=== PATIENT | female | born 1980 | race Caucasian/White ===

== ENCOUNTER 2017-06-09 10:48 | Outpatient (CLI) | payer OTHER ==
[2017-06-09 11:38] LABS: BILIRUBIN,URINE NEGATIVE (NEGATIVE)
[2017-06-09 11:51] LABS: WBC,URINE 0-3 /HPF (0-5)
[2017-06-09 11:59] LABS: BASOPHILS % (AUTO) 0.6 %; EOSINOPHILS % (AUTO) 0.7 %; HCT - HEMATOCRIT 39.4 % (37.0-47.0); HGB - HEMOGLOBIN 13.4 g/dL (12.0-16.0); LYMPHOCYTES % (AUTO) 16.1 %; MEAN CORPUSCULAR HEMOGLOBIN 28.2 pg (27.0-31.0); MEAN CORPUSCULAR HGB CONC 34.1 g/dL (32.0-36.0); MEAN CORPUSCULAR VOLUME 82.7 fL (81.0-99.0); MONOCYTES % (AUTO) 4.9 %; NEUTROPHILS % (AUTO) 77.7 %; RED BLOOD COUNT 4.76 10^6/uL (4.20-5.40); RED CELL DISTRIBUTION WIDTH 19.8 % (12.0-15.0); UNCORRECTED WHITE BLOOD COUNT 10.4 x10^3/uL; WHITE BLOOD COUNT 10.4 x10^3/uL (4.8-10.8)
[2017-06-09 12:26] LABS: BAND NEUTROPHILS % (MANUAL) 0 %
[2017-06-09 12:27] LABS: EOSINOPHILS % (MANUAL) 1 %; LYMPHOCYTES % (MANUAL) 12 %; NEUTROPHILS % (MANUAL) 83 %; NP AUTO DIFFERENTIAL? YES; NP MAN DIFFERENTIAL? NO; PLATELET ESTIMATE, MANUAL NORMAL (130-450,000) (NORMAL)
== END 2017-06-09 10:49 | disposition home or self-care (01) ==
LOC: LAB 10:48
PROVIDERS: ATTEND Obstetrics & Gynecology
DX: Z36.0 Encounter for antenatal screening for chromosomal anomalies (principal)
CPT/HCPCS: 36415; 81001; 81599; 85025; 86762; 86850; 86900; 86901; 87340; 87389

== ENCOUNTER 2017-07-05 10:54 | Outpatient (CLI) | payer OTHER ==
[2017-07-08 15:21] LABS: TEST RESULT REPORT
== END 2017-07-05 10:55 | disposition home or self-care (01) ==
LOC: LAB 10:54
PROVIDERS: ATTEND Obstetrics & Gynecology
DX: Z3A.14 14 weeks gestation of pregnancy (principal)
CPT/HCPCS: 36415; 81511; 81599

== ENCOUNTER 2017-08-01 12:34 | Outpatient (CLI) | payer OTHER ==
--- NOTE | 2017-08-05 14:57 | Ultrasound Report ---
OB ULTRASOUND: 08/01/2017 CLINICAL INDICATION: anatomy. TECHNIQUE: Real-time scanning was performed with manufacturer representative static images obtained. LAST MENSTRUAL PERIOD 03/17/2017 Clinical Age 19 weeks 4 days US Age 19 weeks 6 days EFW Hadlock 335 g EFW% Hadlock 77% Heart Rate 142 bpm EDC 12/22/2017 US EDC 12/20/2017 BPD Hadlock 17 weeks 6 days; Mean mm 44.9 HC Hadlock 18 weeks 1 day; Mean mm 169.6 AC Hadlock 18 weeks 3 days; Mean mm 152.3 FL Hadlock 18 weeks 1 day; Mean mm 32.1 Presentation breech Placental Location anterior Cervical Length 4.4 cm Amniotic Fluid 3.5 cm FINDINGS: There is a single viable intrauterine gestation, in variable position , in breech presentation. heart rate is 142 BPM. The placenta is anterior , without evidence of previa. Amniotic fluid volume is subjectively normal. By size, the fetus measures 19 weeks 6 days (19 weeks 4 days by LMP). The following anatomic structures were visualized and appear normal: The intracranial contents, including the ventricles and posterior fossa; the lips and orbits; the spine; the heart, including 4 chamber view and outflow tracts, and diaphragm; the abdominal contents, including the stomach, the bilateral kidneys, and urinary bladder, as well as a normal 3 vessel cord insertion; 4 limbs. No free fluid or adnexal lesion is appreciated. IMPRESSION: Single viable intrauterine gestation, with size in keeping with LMP dating. Normal anatomic survey. TD: 08/01/2017 18:59 [facility]
== END 2017-08-01 12:35 | disposition home or self-care (01) ==
LOC: DI 12:34
PROVIDERS: ATTEND Obstetrics & Gynecology
DX: Z36.9 Encounter for antenatal screening, unspecified (principal); Z3A.14 14 weeks gestation of pregnancy
CPT/HCPCS: 76811

== ENCOUNTER 2017-09-18 09:35 | Outpatient (CLI) | payer OTHER | END 2017-09-18 09:36 | disposition home or self-care (01) | LOC: LAB 09:35 | PROVIDERS: ATTEND Obstetrics & Gynecology | DX: Z36.9 Encounter for antenatal screening, unspecified (principal) | CPT/HCPCS: 36415; 82950; 85018; 86850 ==

== ENCOUNTER 2017-11-21 08:00 | Outpatient (CLI) | payer OTHER | END 2017-11-21 08:01 | disposition home or self-care (01) | LOC: LAB.R 08:00 | PROVIDERS: ATTEND Obstetrics & Gynecology | DX: Z36.85 Encounter for antenatal screening for Streptococcus B (principal) | CPT/HCPCS: 87077; 87081 ==

== ENCOUNTER 2017-12-08 08:13 | Outpatient (CLI) | payer OTHER ==
--- NOTE | 2017-12-11 17:21 | Ultrasound Report ---
LIMITED OB ULTRASOUND: 12/08/2017 CLINICAL INDICATION: Size/date discrepancy. TECHNIQUE: Real-time scanning was performed with manufacturer's representative static images obtained. LAST MENSTRUAL PERIOD: 03/15/2017 Clinical Age: 38 weeks 2 days (initial sonogram); 38 weeks 0 days (office) US Age: 38 weeks 1 day (current) EFW Hadlock: 4066 grams EFW% Hadlock: -- Heart Rate: 144 bpm EDC: 12/20/2017 (initial sonogram); 12/22/2017 (office) US EDC: 12/21/2017 (current) BPD Hadlock: 36 weeks 3 days; Mean mm 90 HC Hadlock: 38 weeks 0 days; Mean mm 332 AC Hadlock: OOR 40+ weeks; Mean mm 382 FL Hadlock: 39 weeks 6 days; Mean mm 77 Presentation: cephalic Placental Location: anterior Cervical Length: 3.0 Amniotic Fluid: SHERRY 9.2 cm; MVP 3.7 cm FINDINGS There is a single viable intrauterine gestation, in cephalic presentation. heart rate is 144 BPM. The placenta is anterior, without evidence of previa. Amniotic fluid volume is normal, with an SHERRY of 9.2. By size, the fetus measures 38 weeks 1 day (38 weeks 2 days by initial sonogram , 38 weeks 0 days by office dating). Estimated weight by Hadlock method is 4066 grams. No free fluid or adnexal lesion is appreciated. IMPRESSION: SINGLE VIABLE INTRAUTERINE GESTATION, WITH SIZE IN KEEPING WITH PREVIOUS DATING. ESTIMATED WEIGHT BY HADLOCK METHOD 4066 GRAMS. NORMAL AMNIOTIC FLUID INDEX. TD: 12/08/2017 12:14 [facility]
== END 2017-12-08 08:14 | disposition home or self-care (01) ==
LOC: DI 08:13
PROVIDERS: ATTEND Obstetrics & Gynecology
DX: O26.843 Uterine size-date discrepancy, third trimester (principal)
CPT/HCPCS: 76815

== ENCOUNTER 2017-12-20 05:34 | Inpatient (IN) | payer OTHER ==
--- NOTE | 2017-12-18 18:57 | PREOP HISTORY & PHYSICAL ---
DATE OF SERVICE: 12/20/2017 Physician: Jamia Martins DO IDENTIFICATION: This is a 37-year-old G2, P1-0-0-1, with a 39-5/7-week intrauterine . EDC is 12/22/2017, consistent with 11-week ultrasound. HISTORY OF PRESENT ILLNESS: The patient is a patient of [facility] who presents today for her scheduled preoperative visit. I first met patient at [facility] when she presented with complaints of heavy vaginal bleeding. Patient was found to have a large fibroid uterus. This fibroid was excised and was found to go through the entire width of the uterine muscle. Because of this uterine surgery, it was recommended to patient that she proceed to a delivery in order to avoid catastrophic uterine bleeding secondary to uterine rupture. I discussed with patient the risks, benefits, alternatives, indications, expectations of a delivery. Included in our discussion were the risks of hemorrhage, infection and damage to surrounding organs, which may include, but is not limited to an inadvertent laceration, cauterization, or ligation of adjacent ureters, intestines and bladder. After all her questions were answered to her satisfaction, she verbalized her desire to proceed with surgery. Consent forms have been signed. Currently patient is doing well, although she does feel tired. She states that baby, Madelin, is moving well. Denies any loss of fluid or vaginal bleeding. She also denies nausea, vomiting, fevers, chills, diarrhea, constipation. There are no uterine contractions. This has essentially been unremarkable. Patient was found to be positive on her GBS screening. Otherwise, she has had consistent and routine care. PAST MEDICAL HISTORY: None. PAST SURGICAL HISTORY: 07/27/2016 exploratory laparotomy with myomectomy. ALLERGIES: NO KNOWN DRUG ALLERGIES. MEDICATIONS: vitamins. SOCIAL HISTORY: She denies any tobacco, alcohol or illicit drug use. She is to Chace, and they have a son, Mamadou. This is a baby girl with anticipated name of Madelin Sharma. PAST SURGICAL HISTORY: One term spontaneous vaginal delivery at 42 weeks gestation. Baby boy Mamadou weighed 8 pounds 1 ounce. PAST GYNECOLOGIC HISTORY: She denies any abnormal Pap smears or sexually transmitted diseases. Again, patient did undergo an exploratory laparotomy with uterine myomectomy going through the entire muscle of the uterus posteriorly. FAMILY HISTORY: Noncontributory. REVIEW OF SYSTEMS: Negative unless otherwise stated. PHYSICAL EXAMINATION VITAL SIGNS: Height is 69 inches, weighs 231 pounds, BMI 36.2, blood pressure 122/82. GENERAL: Patient is a well-developed, well-nourished, female, in no apparent distress. She is alert and oriented x3. She is extremely pleasant and easy to speak to. HEENT: Within normal limits. HEART: Rate is regular. No murmurs or rubs. LUNGS: Lungs are clear to auscultation bilaterally. ABDOMEN: Gravid, nontender. IMAGING DATA: A recent ultrasound on 12/08/2017 for growth as she was measuring size greater than dates showed estimated weight of 4006 grams or 8 pounds 12 ounces. Baby was cephalic with an anterior placenta. SHERRY is 9.2 cm with MVP of 3.7 cm. LABORATORY: labs reveal she is A positive, and her 05/30/2017 Pap smear was negative, as well as a screening for the high risk human papillomavirus. Gonorrhea and chlamydia were both negative. HIV is nonreactive and RPR was nonreactive as well. Rubella was immune with hepatitis B surface antigen is nonreactive. One-hour Glucola was 110 with a hemoglobin done at the same time of 11.5. GBS is positive. ASSESSMENT 1. A 37-year-old G2, P1-0-0-1, with a 39-5/7-week intrauterine . 2. History of uterine surgery. 3. GBS positive. PLAN 1. We will proceed to a scheduled delivery on 12/20/2017. 2. Patient is to get preop labs done either today or tomorrow in anticipation for surgery on 12/20/2017. 3. Should patient spontaneously go into labor or rupture her membranes prior to surgery, we will give her penicillin for GBS prophylaxis. 4. We will fax prescriptions for acetaminophen, ibuprofen and Colace to [facility] in [place], [place]. A handwritten prescription for oxycodone has been written for patient for any breakthrough pain that she may experience. 5. Discussed with patient that I expect to use a Prevena wound VAC to maximize her postoperative recovery. We will, therefore, anticipate seeing her back on 12/25/2017, for removal of the Prevena wound VAC. 6. Anticipate having patient to call me should she have any worsening fevers, chills, abdominal pain or vaginal bleeding. cc: Christian Germain MD TD: 12/18/2017 17:02 MTDD
[2017-12-20] MEDS ORDERED: SODIUM CHLORIDE FLUSH 0.9% 10 ML SYRINGE ONE (05:59)
[2017-12-20] MEDS ORDERED: LACTATED RINGERS 1,000 ML IV ONE ×3 (06:20→08:25)
[2017-12-20] MEDS ORDERED: ceFAZolin 2 GM/50 ML 2 GM/50 ML BAG IV SCH (06:45)
[2017-12-20] MEDS ORDERED: LACTATED RINGERS 1,000 ML IV SCH (07:00)
[2017-12-20] MEDS ORDERED: CITRIC ACID/SODIUM CITRATE 15 ML UDC PO ONE (07:16)
[2017-12-20 07:29] LABS: BASOPHILS % (AUTO) 0.4 %; EOSINOPHILS # (AUTO) 0.2 10^3/uL (0.0-0.7); EOSINOPHILS % (AUTO) 1.7 %; HGB - HEMOGLOBIN 10.7 g/dL (12.0-16.0); LYMPHOCYTES # (AUTO) 1.8 10^3/uL (1.5-3.5); LYMPHOCYTES % (AUTO) 18.3 %; MEAN CORPUSCULAR HEMOGLOBIN 24.8 pg (27.0-31.0); MEAN CORPUSCULAR HGB CONC 32.9 g/dL (32.0-36.0); MEAN CORPUSCULAR VOLUME 75.2 fL (81.0-99.0); MEAN PLATELET VOLUME 8.5 fL (7.9-10.8); MONOCYTES # (AUTO) 0.7 10^3/uL (0.0-1.0); NEUTROPHILS # (AUTO) 7.2 10^3/uL (1.5-6.6); NEUTROPHILS % (AUTO) 72.6 %; PLT - PLATELET COUNT 241 10^3/uL (130-450); RED BLOOD COUNT 4.33 10^6/uL (4.20-5.40); RED CELL DISTRIBUTION WIDTH 15.9 % (12.0-15.0); WHITE BLOOD COUNT 9.9 x10^3/uL (4.8-10.8)
[2017-12-20] MEDS ORDERED: DEXAMETHASONE 4 MG/ML VIAL IVP ONE (07:56)
[2017-12-20] MEDS ORDERED: ONDANSETRON 4 MG/2 ML VIAL IVP ONE (07:56)
[2017-12-20] MEDS ORDERED: ePHEDrine 50 MG/ML VIAL IVP ONE (07:56)
[2017-12-20] MEDS ORDERED: KETOROLAC 30 MG/ML VIAL IVP ONE (07:56)
[2017-12-20] MEDS ORDERED: PHENYLEPHRINE 10 MG/ML VIAL IV ONE (07:56)
[2017-12-20] MEDS ORDERED: MORPHINE PF 5 MG/10 ML AMP EP ONE (07:56)
[2017-12-20] MEDS ORDERED: fentaNYL 100 MCG/2 ML VIAL IVP ONE (07:56)
[2017-12-20] MEDS ORDERED: ceFAZolin 1 GM VIAL IV ONE (07:56)
[2017-12-20] MEDS ORDERED: ACETAMINOPHEN 1,000 MG/100 ML 100 ML IV ONE (07:56)
[2017-12-20] MEDS ORDERED: SODIUM CHLORIDE FLUSH 0.9% 10 ML SYRINGE IVP PRN (09:10)
--- NOTE | 2017-12-20 09:10 | OPERATIVE REPORT ---
Operative Report - General Admit Date: 12/20/17 - Other Other Information/Narrative: Date of operation: 12/20/2017 Surgeon: Jamia Martins DO FACOG Supervisor Evaporator: PAUL De Paz Anesthetists: 1. Benito Kaur CRNA 2. Obed Contreras CRNA Anesthesia: Spinal Pre-op Dx: 1. 37 yo with a 39w5d IUP 2. Previous uterine surgery with myomectomy Post-op Dx: 1. 37 yo with a 39w5d IUP 2. Previous uterine surgery with myomectomy Procedure: Primary transverse Delivery Findings: Viable female fetus, VTX presentation named Madelin. Apgars 9/9. Normal fallopian tubes and ovaries. Posterior scar on the uterus consistent with H/O myomectomy. Right ovary adhesed to posterior uterus. Specimens: 1. Placenta (to medical waste) 2. Cord blood Drains: 1. Tilley catheter 2. Prevena wound vac EBL: 1100 mL Complications: None Dictation: [id number]
[2017-12-20] MEDS ORDERED: diphenhydrAMINE INJ 50 MG/ML VIAL IVP PRN (09:15)
[2017-12-20] MEDS ORDERED: ONDANSETRON 4 MG/2 ML VIAL IVP PRN (09:15)
[2017-12-20] MEDS ORDERED: OXYTOCIN/SODIUM CHLORIDE 250 ML IV ONE (09:15)
[2017-12-20] MEDS ORDERED: MAGNESIUM HYDROXIDE 2,400 MG/30 ML UDC PO PRN (09:15)
--- NOTE | 2017-12-20 10:36 | OPERATIVE REPORT ---
DATE OF OPERATION: 12/20/2017 PREOPERATIVE DIAGNOSES 1. A 37-year-old G2, P1-0-0-1, with a 39 and 5/7-week intrauterine . 2. Previous uterine surgery with myomectomy. POSTOPERATIVE DIAGNOSES 1. A 37-year-old G2, P1-0-0-1, with a 39 and 5/7-week intrauterine . 2. Previous uterine surgery with myomectomy. PROCEDURE PERFORMED: Primary transverse delivery. SURGEON: Jamia Martins DO, FACOG SHEET METAL LAYOUT WORKER: Valeria Maldonado CNM, PLANT UTILITIES ENGINEER ANESTHETISTS 1. Benito Kaur CRNA 2. Obed Contreras CRNA ANESTHESIA: Spinal. FINDINGS: Viable female fetus in vertex presentation named Madelin. Apgars are 9 and 9 at 1 and 5 minutes respectively. Weight is 9 pounds, 14 ounces. Normal fallopian tubes and ovaries. Posterior scar consistent with history of posterior myomectomy. Right ovary adhesed to the posterior uterus. SPECIMENS REMOVED 1. Placenta to medical waste. 2. Cord blood. DRAINS 1. Tilley catheter to gravity. 2. Prevena wound VAC. ESTIMATED BLOOD LOSS: 1100 mL COMPLICATIONS: None. BRIEF HISTORY: The patient is a patient of [facility] with whom we have been seeing early in and consistently. She has been doing well and this has been remarkable only for being GBS positive. She had a myomectomy in 2017. This was done via exploratory laparotomy and a large leiomyoma was removed that was submucosal. Given this history, I recommended to her that she proceed to a delivery in order to avoid the potential of a uterine rupture leading to catastrophic bleeding. I discussed with her the risks, benefits, alternatives, indications, and expectations of a delivery. I discussed with her the risks of hemorrhage, infection, damage to surrounding organs, which may include, but is not limited to inadvertent laceration, cauterization or ligation of adjacent ureters, intestines and bladder. Also with a delivery, she will need to have repeat deliveries for any future pregnancies. After her questions were answered to her satisfaction, she verbalized her desire to proceed with surgery. Consent forms have been signed. OPERATION IN DETAIL: The patient was identified and consented, taken to the operating room where IV access was already in place. She was then given spinal anesthesia after several attempts were made. Benito Kaur had some difficulty in placing and asked Obed Contreras to try it. Gio was able to successfully place a spinal anesthesia. Sequential compression devices were placed on lower extremities and turned on. She was then prepped and draped in normal sterile fashion in the dorsal supine position with a leftward tilt. Two grams of Ancef IV were given to her for postoperative cellulitis prophylaxis. She was then given a Tilley catheter and prepped and draped in normal sterile fashion. A time -out was performed, which correctly identified the patient, site of procedure and the procedure itself. Her prior Pfannenstiel scar was first removed sharply. This was sent off to [facility]. The incision was then carried through the underlying layer of fascia with electrocautery. The fascia was then nicked in the midline and extended laterally. The rectus muscles were then dissected off of the fascia. Rectus muscles were identified in the midline and then entered sharply. Peritoneum was entered bluntly. The bladder flap was then developed by dissecting it sharply and bluntly. Next , a hysterotomy was made in a transverse fashion in the lower portion of the uterus. The uterus was definitely not in labor as the thickness of the uterine muscle was at least a 2 cm deep. Amniotomy revealed thick meconium. The baby had a significantly large head and the wound VAC was placed on top of the head in order to help deliver the baby. Baby was then delivered with the help of fundal pressure. No nuchal cord was noted. Nose and mouth were suctioned after complete delivery of the baby. The umbilical cord was doubly clamped and cut, and the infant was then handed off to Dr. Norman, the on-call die trimmer. The uterus was then gently massaged and placenta delivered manually. The uterus was then delivered out of the abdomen and cleared of all clots and debris. Hysterotomy was then repaired with 2 sutures of 0 Vicryl, first in a running locked fashion, then in an imbricating fashion via the Lembert stitch. Hemostasis was noted. Closer inspection of the uterus revealed that the patient had healed from her previous myomectomy. There was significant scar starting from the right anterior portion of the uterus and extended posteriorly. The right ovary was adhesed to the uterus. I did not elect to lyse the ovary as it did not seem to cause any problems. The uterus was then returned to the abdomen and the hysterotomy was found to be hemostatically stable. The abdomen was copiously irrigated and found to be hemostatically stable. Peritoneum was then closed with a 2-0 Vicryl in a running fashion, and the same stitch was used to reapproximate the rectus muscles. Fascia was then closed with 0 Vicryl in running fashion. Wiley's fascia was then reapproximated with a running stitch of 0 Vicryl. Skin was then closed with 4-0 Monocryl in subcuticular fashion. Finally, Prevena wound VAC was placed on top and turned on. The patient tolerated the procedure well and was taken back to recovery room in stable and awake condition. She will be given routine care at this point in time. All sponge, lap, and needle counts were correct x2 as per nurse report. TD: 12/20/2017 09:37 MTDD
[2017-12-20] MEDS: oxyCODONE 5 MG TABLET PO SCH ×2 (13:35→21:22)
[2017-12-20] MEDS: SIMETHICONE CHEW 80 MG TABLET PO SCH ×2 (15:49→21:32)
[2017-12-20] MEDS: ACETAMINOPHEN 500 MG TABLET PO SCH ×2 (15:49→23:31)
[2017-12-20] MEDS ORDERED: SODIUM CHLORIDE FLUSH 0.9% 10 ML SYRINGE IVP SCH (17:00)
[2017-12-20 18:03] LABS: BASOPHILS % (AUTO) 0.2 %; EOSINOPHILS % (AUTO) 0.1 %; HGB - HEMOGLOBIN 9.1 g/dL (12.0-16.0); LYMPHOCYTES # (AUTO) 1.4 10^3/uL (1.5-3.5); MEAN CORPUSCULAR HEMOGLOBIN 23.9 pg (27.0-31.0); MEAN CORPUSCULAR HGB CONC 31.5 g/dL (32.0-36.0); MEAN CORPUSCULAR VOLUME 75.7 fL (81.0-99.0); MEAN PLATELET VOLUME 7.7 fL (7.9-10.8); MONOCYTES # (AUTO) 0.8 10^3/uL (0.0-1.0); MONOCYTES % (AUTO) 5.1 %; NEUTROPHILS # (AUTO) 13.4 10^3/uL (1.5-6.6); NEUTROPHILS % (AUTO) 85.6 %; PLT - PLATELET COUNT 253 10^3/uL (130-450); RED CELL DISTRIBUTION WIDTH 16.1 % (12.0-15.0); WHITE BLOOD COUNT 15.7 x10^3/uL (4.8-10.8)
[2017-12-20] MEDS: DOCUSATE SODIUM 100 MG CAPSULE PO SCH (20:47)
[2017-12-20] MEDS: CELECOXIB 100 MG CAPSULE PO SCH (20:47)
[2017-12-21] MEDS: oxyCODONE 5 MG TABLET PO SCH ×5 (01:27→20:03)
[2017-12-21 05:54] LABS: BASOPHILS # (AUTO) 0.1 10^3/uL (0.0-0.1); BASOPHILS % (AUTO) 0.5 %; EOSINOPHILS # (AUTO) 0.1 10^3/uL (0.0-0.7); EOSINOPHILS % (AUTO) 1.1 %; HGB - HEMOGLOBIN 8.3 g/dL (12.0-16.0); LYMPHOCYTES # (AUTO) 2.3 10^3/uL (1.5-3.5); LYMPHOCYTES % (AUTO) 20.2 %; MEAN CORPUSCULAR HEMOGLOBIN 23.8 pg (27.0-31.0); MEAN CORPUSCULAR VOLUME 76.8 fL (81.0-99.0); MEAN PLATELET VOLUME 7.6 fL (7.9-10.8); MONOCYTES # (AUTO) 0.8 10^3/uL (0.0-1.0); MONOCYTES % (AUTO) 7.3 %; NEUTROPHILS # (AUTO) 7.9 10^3/uL (1.5-6.6); NEUTROPHILS % (AUTO) 70.9 %; PLT - PLATELET COUNT 225 10^3/uL (130-450); RED BLOOD COUNT 3.51 10^6/uL (4.20-5.40); RED CELL DISTRIBUTION WIDTH 15.7 % (12.0-15.0); WHITE BLOOD COUNT 11.2 x10^3/uL (4.8-10.8)
[2017-12-21] MEDS: ACETAMINOPHEN 500 MG TABLET PO SCH ×2 (09:03→17:16)
[2017-12-21] MEDS: DOCUSATE SODIUM 100 MG CAPSULE PO SCH ×2 (09:04→21:07)
[2017-12-21] MEDS: CELECOXIB 100 MG CAPSULE PO SCH ×2 (09:05→21:07)
[2017-12-21] MEDS: SIMETHICONE CHEW 80 MG TABLET PO SCH ×2 (09:06→17:17)
--- NOTE | 2017-12-21 17:23 | PROVIDER PROGRESS NOTE ---
Subjective - Prog Note Date Prog Note Date: 12/21/17 Prog Note Time: 17:23 - Subjective Pt reports feeling: Improved Subjective: Patient sitting in bed with baby on her chest. Reports baby is cluster feeding. Pain controlled with po meds. Has ambulated and urinated. No nausea or vomiting. Lochia improving. Objective - Vital Signs/Intake & Output Vital Signs: Vital Signs x48h Temp Pulse Resp BP Pulse Ox 12/21/17 12:10 98.6 F 86 18 128/68 95 Intake & Output: Intake & Output 12/18/17 12/19/17 12/20/17 12/21/17 23:59 23:59 23:59 23:59 Intake Total 1565 Output Total 2225 1475 Balance -660 -1475 - Objective General Appearance: positive: No acute distress Eyes Bilateral: positive: Normal inspection Abdomen: positive: Non-tender (Wound vac in place and working well) Neurologic/Psychiatric: positive: Oriented x3 - Lab Results Fish Bones: 12/21/17 05:49 Other Labs: Lab Results x24hrs 12/21/17 12/20/17 Range/Units 05:49 17:58 WBC 11.2 H 15.7 H (4.8-10.8) x10^3/uL RBC 3.51 L 3.80 L (4.20-5.40) 10^6/uL Hgb 8.3 L 9.1 L (12.0-16.0) g/dL Hct 26.9 L 28.7 L (37.0-47.0) % MCV 76.8 L 75.7 L (81.0-99.0) fL MCH 23.8 L 23.9 L (27.0-31.0) pg MCHC 31.0 L 31.5 L (32.0-36.0) g/dL RDW 15.7 H 16.1 H (12.0-15.0) % Plt Count 225 253 (130-450) 10^3/uL MPV 7.6 L 7.7 L (7.9-10.8) fL Neut # 7.9 H 13.4 H (1.5-6.6) 10^3/uL Lymph # 2.3 1.4 L (1.5-3.5) 10^3/uL [place] # 0.8 0.8 (0.0-1.0) 10^3/uL Eos # 0.1 0.0 (0.0-0.7) 10^3/uL Baso # 0.1 0.0 (0.0-0.1) 10^3/uL Absolute Nucleated RBC 0.00 0.00 x10^3/uL Nucleated RBC % 0.0 0.0 /100WBC Assessment/Plan - Problem List (1) delivery delivered Impression: 37 yo S/p delivery 12/20/2017 Normal recovery Asymptomatic iron deficiency anemia Continue current care Transfuse ferric sulfate Anticipate discharge to home tomorrow night
[2017-12-21] MEDS ORDERED: FERRIC GLUCONATE 125 MG in SODIUM CHLORIDE 0.9% 100ML 100 ML IV ONE (18:30)
[2017-12-22] MEDS: oxyCODONE 5 MG TABLET PO SCH ×5 (00:37→21:14)
[2017-12-22] MEDS: ACETAMINOPHEN 500 MG TABLET PO SCH ×3 (01:31→17:42)
[2017-12-22] MEDS: SIMETHICONE CHEW 80 MG TABLET PO SCH ×3 (05:28→17:42)
--- NOTE | 2017-12-22 07:43 | PROVIDER PROGRESS NOTE ---
Subjective - Prog Note Date Prog Note Date: 12/22/17 Prog Note Time: 07:40 - Subjective Pt reports feeling: Improved Subjective: Patient sitting in bed, , son and friend visiting. States she would like to go home. No nausea, fevers, chills or difficulty with urination. Light lochia. Pain controlled with po meds. Baby doing well. Objective - Vital Signs/Intake & Output Reviewed Vital Signs: Yes Vital Signs: Vital Signs x48h Temp Pulse Resp BP Pulse Ox 12/22/17 04:43 97.7 F 75 16 126/64 97 Intake & Output: Intake & Output 12/19/17 12/20/17 12/21/17 12/22/17 23:59 23:59 23:59 23:59 Intake Total 1565 Output Total 8005 1470 Balance -582 -5617 - Objective General Appearance: positive: No acute distress Eyes Bilateral: positive: Normal inspection Abdomen: positive: Non-tender (Wound vac in place and working well) Skin: positive: Color nml Extremities: positive: Non-tender Neurologic/Psychiatric: positive: Oriented x3 - Lab Results Fish Bones: 12/21/17 05:49 Assessment/Plan - Problem List (1) delivery delivered Impression: 37 yo S/p delivery 12/20/2017, POD #2 Prior myomectomy S/p iron transfusion 12/21/2017 Normal recovery Discharge to home. Follow up next week for removal of Prevena wound vac Take home meds of motrin, tylenol and oxycodone as well as PRN colace Call for worsening fevers, chills, abdominal pain or vaginal bleeding No lifting more than a gallon of milk Discharge Plan Disposition: 01 Home, Self Care Condition: Good Diet: Regular Activity Restrictions: Activity as Tolerated (No lifting greater than a gallon of milk) Shower Restrictions: No Driving Restrictions: Yes (No driving for now) Weight Bearing: Full Weight No Smoking: If you smoke, Please STOP! Call for help.
--- NOTE | 2017-12-22 08:13 | DISCHARGE SUMMARY ---
Physician: Jamia Martins DO DATE OF ADMISSION: 12/20/2017 DATE OF DISCHARGE: 12/22/2017 DIAGNOSES ON ADMISSION 1. A 37-year-old, G2, P1-0-0-1, with a 39-5/7 weeks' intrauterine . 2. History of prior uterine surgery, specifically a submucosal leiomyoma. DIAGNOSES ON DISCHARGE 1. A 37-year-old, G2, P2-0-0-2, status post primary delivery on 2017. 2. Status post iron transfusion on 12/21/2017 for asymptomatic iron deficiency anemia. 3. Normal recovery. BRIEF HISTORY: Patient is a patient of [facility] whom I have been seeing throughout the entire course. Patient's history was significant for a prior myomectomy and it was recommended that patient undergo a delivery. Her otherwise was unremarkable. Patient was admitted to the hospital on 12/20/2017 and underwent a primary delivery. She delivered a viable, female infant named Madelin Sharma. Apgars were 9 and 9 at one and five minutes respectively, and she weighed 9 pounds 14 ounces. EBL was 1100 mL There were no complications. Patient did receive a Prevena wound VAC for maximizing her postoperative recovery. Patient's postoperative course has been unremarkable. She is ambulating and tolerating her diet. Patient is urinating without difficulty. Her pain was controlled with oral medications. Patient is latching well and the baby is doing well. Patient will be discharged to home on 12/22/2017. She has already been given medications at her preop visit for ibuprofen, Motrin, and oxycodone. Patient is taking Colace for a stool softener. Patient will see me next week for removal of her Prevena wound VAC and in 2 weeks for an incision check. Patient is to call should she have any worsening fever, chills, abdominal pain or vaginal bleeding. TD: 12/22/2017 08:12 JOSE
[2017-12-22] MEDS: CELECOXIB 100 MG CAPSULE PO SCH ×2 (08:27→20:46)
[2017-12-22] MEDS: DOCUSATE SODIUM 100 MG CAPSULE PO SCH ×2 (08:27→20:46)
[2017-12-22 22:46] VITALS: BP 140/73
--- NOTE | 2017-12-22 23:00 | Labor Flowsheet ---
Labor Flowsheet Datetime Report Generated by CPN: 12/22/2017 22:59 Datetime: 12/20/2017 11:29 VAGINAL EXAM Membranes Ruptured Date/Time: 12/20/2017 08:02 Membranes Rupture Method: Artificial Amniotic Fluid Color: Clear Amniotic Fluid Amount: Moderate Amniotic Fluid Odor: Normal
== END 2017-12-22 22:55 | disposition home or self-care (01) | DRG 766 ==
LOC: FBP 05:34
PROVIDERS: ADMIT Obstetrics & Gynecology; ATTEND Obstetrics & Gynecology
PROC: 10D00Z1 Extraction of Products of Conception, Low, Open Approach (ICD-10-PCS; principal; 2017-12-20 07:30)
DX: O34.29 Maternal care due to uterine scar from other previous surgery (principal); N85.8 Other specified noninflammatory disorders of uterus; O99.824 Streptococcus B carrier state complicating childbirth; O99.02 Anemia complicating childbirth; D50.9 Iron deficiency anemia, unspecified; O77.0 Labor and delivery complicated by meconium in amniotic fluid; Z3A.39 39 weeks gestation of pregnancy; Z37.0 Single live birth; Z86.018 Personal history of other benign neoplasm
CPT/HCPCS: 36415; 85025; 86850; 86900; 86901

== ENCOUNTER 2020-05-05 08:00 | Outpatient (CLI) | payer BC, OTHER ==
[2020-05-05 13:16] LABS: BASOPHILS % (AUTO) 0.6 %; EOSINOPHILS % (AUTO) 3.6 %; HGB - HEMOGLOBIN 9.8 g/dL (12.0-16.0); LYMPHOCYTES % (AUTO) 29.4 %; MEAN CORPUSCULAR VOLUME 72.5 fL (81.0-99.0); MEAN PLATELET VOLUME 10.1 fL (7.9-10.8); MONOCYTES % (AUTO) 5.8 %; NEUTROPHILS % (AUTO) 60.3 %; PLT - PLATELET COUNT 397 10^3/uL (130-450); RED BLOOD COUNT 4.66 10^6/uL (4.20-5.40); RED CELL DISTRIBUTION WIDTH 18.5 % (12.0-15.0); WHITE BLOOD COUNT 6.4 x10^3/uL (4.8-10.8)
[2020-05-05 13:22] LABS: ABNORMAL LYMPHS % (MANUAL) 0 %; BAND NEUTROPHILS % (MANUAL) 0 %
[2020-05-05 13:40] LABS: DIFFERENTIAL COMMENT MANUAL DIFFERENTIAL; EOSINOPHILS # (MANUAL) 0.4 10^3/uL (0-0.7); LYMPHOCYTES # (MANUAL) 2.2 10^3/uL (1.5-3.5); LYMPHOCYTES % (MANUAL) 16 %; MONOCYTES # (MANUAL) 0.4 10^3/uL (0.0-1.0)
[2020-05-05 13:46] LABS: ALBUMIN 4.1 g/dL (3.2-5.5); ALBUMIN/GLOBULIN RATIO 1.1 (1.0-2.2); ALKALINE PHOSPHATASE 60 IU/L (42-121); ALT ALANINE AMINOTRANSFERASE 11 IU/L (10-60); AST ASPARTATE AMINOTRANSFERASE 18 IU/L (10-42); BILIRUBIN,TOTAL 0.6 mg/dL (0.2-1.0); BUN - BLOOD UREA NITROGEN 13 mg/dL (6-20); CALCIUM 8.6 mg/dL (8.5-10.3); CARBON DIOXIDE - CO2 28 mmol/L (21-32); CHLORIDE 106 mmol/L (101-111); CHOLESTEROL 204 mg/dL; CREATININE 0.7 mg/dL (0.4-1.0); GLUCOSE 93 mg/dL (70-100); HDL CHOLESTEROL 51 mg/dL; LDL CHOLESTEROL,CALCULATED 137 mg/dL; LDL/HDL RATIO 2.7 (<4.4); SODIUM 137 mmol/L (135-145); TOTAL PROTEIN 7.8 g/dL (6.7-8.2); VLDL CHOLESTEROL 16 mg/dL
== END 2020-05-05 23:59 | disposition home or self-care (01) ==
LOC: LAB.WCP 08:00
PROVIDERS: ATTEND Physician Assistant
DX: Z00.00 Encounter for general adult medical examination without abnormal findings (principal)
CPT/HCPCS: 36415; 80053; 80061; 83721; 84443; 85025

== ENCOUNTER 2020-05-13 08:50 | Outpatient (CLI) | payer BC, OTHER ==
[2020-05-13 12:02] LABS: % IRON SATURATION 4 % (20-50); IRON 16 ug/dL (28-170); TOTAL IRON BINDING CAPACITY 428 ug/dL (250-450); TRANSFERRIN 306 mg/dL (192-382)
== END 2020-05-13 23:59 | disposition home or self-care (01) ==
LOC: LAB.WCP 08:50
PROVIDERS: ATTEND Family Medicine
DX: D50.9 Iron deficiency anemia, unspecified (principal); R68.89 Other general symptoms and signs
CPT/HCPCS: 36415; 82728; 83540; 84466

== ENCOUNTER 2020-09-01 09:18 | Outpatient (CLI) | payer BC ==
--- NOTE | 2020-09-02 10:09 | Mammography Report ---
BILATERAL DIGITAL DIAGNOSTIC MAMMOGRAM 3D/2D: 09/01/2020 CLINICAL: Intermitten pain in bilateral breasts. Baseline exam. No prior exams were available for comparison. There are scattered fibroglandular elements in both br easts. No significant masses, calcifications, or other findings are seen in either breast. IMPRESSION: NEGATIVE There is no abnormality seen in either breast to correspond with the diffuse pain, however, clinical correlation is recommended. There is no mammographic evidence of malignancy. An annual screening mammogram is recommended beginni at age 40. This exam was interpreted at Station ID: [id number]. NOTE: For mammograms, a report in lay terms will be sent to the patient. Approximately 15% of breast malignancies will not be visualized mammographically. In the management of a palpable breast mass, a negative mammogram must not discourage biopsy of a clinically suspicious lesion. Electronically Signed By: Giuseppe Queen M.D. ar/:09/01/2020 10:07:41 ACR BI-RADS Category 1: Negative 3341F PARENCHYMAL PATTERN: (A) - The breast(s) demonstrate(s) scattered fibroglandular densities. BI-RADS CATEGORY: (1) - 1 Mammogram 20220902 2 year screening LATERALITY: (B)
== END 2020-09-01 09:19 | disposition home or self-care (01) ==
LOC: DI 09:18
PROVIDERS: ATTEND Physician Assistant
DX: N64.4 Mastodynia (principal)